=== PATIENT | female | born 1985 | race Caucasian/White ===

== ENCOUNTER → 2017-12-25 | Outpatient (CLI) | payer OTHER | LOC: M RAD 13:44 | DX: N63.0 Unspecified lump in unspecified breast (principal) ==

== ENCOUNTER 2018-04-13 14:09 | Emergency (ER) | payer OTHER ==
[2018-04-13] MEDS: IBUPROFEN 800 MG TAB PO (17:14)
[2018-04-13] MEDS: ACETAMINOPHEN 325 MG TAB PO (17:14)
== END 2018-04-13 17:18 | disposition home or self-care (01) ==
LOC: M ED 14:09
DX: K60.2 Anal fissure, unspecified (principal)
CPT/HCPCS: 87186

== ENCOUNTER 2018-04-15 13:34 | Emergency (ER) | payer OTHER ==
[2018-04-15] MEDS ORDERED: NS 1,000 ML IV (15:45)
[2018-04-15 16:03] LABS: BASO % 0.4 % (0.0-1.0); EOS % 0.1 % (0.0-3.0); HEMATOCRIT 40.1 % (36.0-47.0); HEMOGLOBIN 13.8 g/dl (12.0-15.5); IMMATURE GRANULOCYTE % 0.4 % (0-3.0); LYMPH # 1.7 10^3/uL (1.5-4.5); LYMPH % 22.9 % (24.0-44.0); MEAN CORPUSCULAR HEMOGLOBIN 31.4 pg (27.0-33.0); MEAN CORPUSCULAR HGB CONC 34.4 g/dl (32.0-36.5); MEAN CORPUSCULAR VOLUME 91.1 fl (80.0-96.0); MONO # 0.3 10^3/uL (0.0-0.8); MONO % 4.4 % (0.0-5.0); NEUTROPHILS # 5.4 10^3/uL (1.8-7.7); NEUTROPHILS % 71.8 % (36.0-66.0); PLATELET COUNT, AUTOMATED 227 10^3/uL (150-450); RED CELL DISTRIBUTION WIDTH 12.2 % (11.5-14.5); WHITE BLOOD COUNT 7.5 10^3/uL (4.0-10.0)
[2018-04-15] MEDS: ONDANSETRON 4MG/2ML VIAL (J2405) IV (16:04)
[2018-04-15] MEDS: NS 1,000 ML IV (16:04)
[2018-04-15] MEDS: methylPREDNISolone INJ 125 MG/2 ML VIAL (J2930) IV (16:04)
[2018-04-15 16:28] LABS: KETONE, URINE AUTO RFX NEGATIVE (NEGATIVE); LEUKOCYTE ESTERASE UR AUTO RFX NEGATIVE (NEGATIVE); NITRITE, URINE AUTO RFX NEGATIVE (NEGATIVE); RBC, URINE AUTO RFX 1 /HPF (0-3); SPECIFIC GRAVITY UR AUTO RFX 1.004 (1.002-1.035); SQUAM EPITHELIAL CELL UR AURFX 2 /HPF (0-6); WBC, URINE AUTO RFX 1 /HPF (0-3)
[2018-04-15 16:29] LABS: MYOGLOBIN SCREEN, URINE NEGATIVE (NEGATIVE)
[2018-04-15 16:36] LABS: ALBUMIN 4.4 GM/DL (3.2-5.2); ALBUMIN/GLOBULIN RATIO 1.38 (1.00-1.93); ALKALINE PHOSPHATASE 93 U/L (45-117); ALT/SGPT 33 U/L (12-78); ANION GAP 7 MEQ/L (8-16); AST/SGOT 18 U/L (7-37); BILIRUBIN,TOTAL 0.7 MG/DL (0.2-1.0); BLOOD UREA NITROGEN 10 MG/DL (7-18); CARBON DIOXIDE LEVEL 27 MEQ/L (21-32); CHLORIDE LEVEL 102 MEQ/L (98-107); CPK CREATINE PHOSPHOKINASE 32 U/L (26-192); CREATININE FOR GFR 0.78 MG/DL (0.55-1.30); GLOMERULAR FILTRATION RATE > 60.0 (>60); GLUCOSE, FASTING 101 MG/DL (70-100); POTASSIUM SERUM 4.2 MEQ/L (3.5-5.1); SODIUM LEVEL 136 MEQ/L (136-145); TOTAL PROTEIN 7.6 GM/DL (6.4-8.2)
[2018-04-15 16:37] LABS: LACTIC ACID SEPSIS PROTOCOL 0.8 MMOL/L (0.4-2.0)
== END 2018-04-15 17:07 | disposition home or self-care (01) ==
LOC: M ED 13:34
DX: M79.10 Myalgia, unspecified site (principal); R07.9 Chest pain, unspecified; R11.0 Nausea; R63.1 Polydipsia; R82.90 Unspecified abnormal findings in urine; T36.8X5A Adverse effect of other systemic antibiotics, initial encounter; Z79.2 Long term (current) use of antibiotics; Z79.899 Other long term (current) drug therapy
CPT/HCPCS: J2405

== ENCOUNTER 2018-12-14 11:42 | Day surgery (SDC) | payer OTHER ==
[~2018-12-14] VITALS: Ht 165.1 cm; Wt 73.9 kg
[~2018-12-14 11:42] MED LIST: BACT800T5 PO; LEVA1TAB2 PO; MULTCAP PO; NS 1,000 ML IV ONE; PROC1AER16 PR
[2018-12-14] MEDS ORDERED: LIDOCAINE 2% INJ 100 MG/5 ML SDV (FOR ANES.) As Ordered ONE (13:05)
[2018-12-14] MEDS ORDERED: PROPOFOL 200 MG/20 ML VIAL As Ordered ONE (13:05)
--- NOTE | 2018-12-14 13:59 | ROOR ---
Patient Name: Leslie Cuevas Procedure Date: 12/14/2018 1:36 PM Date of : 1985 Age: 33 Room: [facility] Gender: Female Note Status: Finalized Procedure: Total Colonoscopy to Cecum + ileoscopy Indications: Change in bowel habits Providers: Elvin San MD Referring MD: JAKE JOSEPH MD Requesting Provider: Medicines: Monitored Anesthesia Care Complications: No immediate complications. Procedure: Pre-Anesthesia Assessment: - The heart rate, respiratory rate, oxygen saturations, blood pressure, adequacy of pulmonary ventilation, and response to care were monitored throughout the procedure. The Colonoscope was introduced through the anus and advanced to the terminal ileum. The colonoscopy was performed without difficulty. The patient tolerated the procedure well. The quality of the bowel preparation was excellent. Findings: The perianal and digital rectal examinations were normal. No other significant abnormalities were identified in a careful examination of the remainder of the colon. The exam was otherwise without abnormality on direct and retroflexion views. The terminal ileum appeared normal. The exam was otherwise without abnormality. Impression: - The examination was otherwise normal on direct and retroflexion views. - The examined portion of the ileum was normal. - The examination was otherwise normal. - No specimens collected. - The exam was otherwise normal to the cecum. Recommendation: - Patient has a contact number available for emergencies. The signs and symptoms of potential delayed complications were discussed with the patient. Return to normal activities tomorrow. Written discharge instructions were provided to the patient. - High fiber diet. - Discharge patient to home. - Continue present medications. - Repeat colonoscopy at age 48 for screening purposes. - Return to referring physician. - The findings and recommendations were discussed with the patient's family. Elvin San MD Elvin San MD 12/14/2018 1:58:33 PM Electronically signed by Elvin San MD Number of Addenda: 0 Note Initiated On: 12/14/2018 1:36 PM Estimated Blood Loss: Estimated blood loss: none.
[2018-12-14 14:20] VITALS: BP 104/70
== END 2018-12-14 14:30 | disposition home or self-care (01) ==
LOC: M OPP 11:42
PROVIDERS: ATTEND Internal Medicine Gastroenterology
DX: R19.4 Change in bowel habit (principal); Z88.1 Allergy status to other antibiotic agents